=== PATIENT | female | born 1975 | race African-American/Black ===

== ENCOUNTER 2017-01-15 08:31 | Emergency (ER) | payer MEDICAID, OTHER ==
[~2017-01-15] VITALS: Ht 177.8 cm; Wt 105.0 kg
[2017-01-15] MEDS ORDERED: BACITRACIN ZINC OINT UDPKT TOP ONE (09:45)
[2017-01-15] MEDS ORDERED: KETOROLAC 60MG/2ML VIAL IM ONE (09:45)
[2017-01-15] MEDS ORDERED: LIDOCAINE HCL 1% 20ML VIAL (Pyxis) INJ MC ONE (09:45)
[2017-01-15 09:55] VITALS: BP 129/87
== END 2017-01-15 11:57 | disposition home or self-care (01) ==
LOC: ER 09:39
DX: S91.011A Laceration without foreign body, right ankle, initial encounter (principal); W45.8XXA Other foreign body or object entering through skin, initial encounter; W22.8XXA Striking against or struck by other objects, initial encounter; Y93.89 Activity, other specified; Y92.488 Other paved roadways as the place of occurrence of the external cause
CPT/HCPCS: 12002; 73610; 96372; 99284; J1885; J3490; X7700; Z7610